=== PATIENT | female | born 2000 | race Asian ===

== ENCOUNTER 2025-04-16 10:33 | Outpatient (AMB) | payer OTHER, SELFPAY ==
[2025-04-16 10:54] VITALS: BP 125/78; PULSE 60; RESP 14; TEMP 36.4; O2SAT 98; BMI 26.8
--- NOTE | 2025-04-16 10:54 | GYNCLNT_ITS ---
Vital Signs 04/16/25 10:54 Height 1.52 m Height Method Stated Weight 61.915 kg Weight Measurement Method Standing Scale BMI 26.8 BP 125/78 Blood Pressure Source Automatic Cuff Blood Pressure Location Left Upper Arm Position Sitting Respiration 14 Pulse 60 Pulse Source Monitor Temp 97.5 F Temp Source Oral Pulse Oximetry (%) 98 Oxygen Delivery Method Room Air Allergies/Home Meds Allergies & Medications Allergies No Known Allergies Allergy (Verified 04/16/25 10:56) Medication Reconciliation fluconazole 150 mg tablet 150 mg PO QDAY 3 days #3 tabs 04/16/25 [Rx] Intake Visit Data Collection New Patient or Established: Established Patient (seen at [facility] within 3 years) Reason for Visit:: PAP SMEAR Seen by Clinical Staff ONLY (RN/MA): No Market Manager Required: No Do You Feel Safe at Home: Yes Authorities Contacted: N/A PCP or OBGYN visit in last 3 months: Yes Hx Now: No Are you currently on any form of Control: Yes Last menstrual period: 04/07/25 Pain Present Currently: No Pain Scale Used: Mcgee-Mathis/Numerical Pain scale:: 0 Smoking Status Smoking Status: Never smoker 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 1. Little interest or pleasure in doing things: not at all 2. Feeling down, depressed, or hopeless: not at all Total score: 0 PHQ-9 3. Trouble falling or staying asleep, or sleeping too much: Not at all 4. Feeling tired or having little energy: Not at all 5. Poor appetite or overeating: Not at all 6. Feeling bad about yourself - or that you are a failure or have let yourself or your family down: Not at all 7. Trouble concentrating on things, such as reading the newspaper or watching television: Not at all 8. Moving or speaking so slowly that other people could have noticed? - Or the opposite - being so fidgety or restless that you have been moving around a lot more than usual: not at all 9. Thoughts that you would be better off or of hurting yourself in some way: Not at all Total score: 0 Source: Developed by Drs. Rad Stephen, Jessica Villeda, Sly Schmid and colleagues, with an educational alex from [employer]. 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 Patient has had Nexplanon for 1 year. She is not happy with the method complaints of problems with prolonged and irregular bleeding. She plans to take a break from control. Denies social habits. Denies surgery. Denies chronic illness. Previous history of vaginitis. 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 Review of Systems Review of Systems Systems Reviewed: All systems reviewed, normal except as documented Exam Narrative Physical exam: Euthyroid. Both breasts soft symmetrical. Nontender. No masses. Nipples erect. Abdomen soft nontender, no masses. Perineum clear no lesions noted. Coy rugae. Minimal whitish thin discharge. Negative whiff. Nulliparous cervix. No inflammation no cervical motion tenderness no masses. Uterus normal size and shape mobile nontender. Adnexa was normal. nexplanon site intact General Limitations: no limitations General Appearance: alert, in no apparent distress, comfortable, cooperative, healthy appearing, well developed and well groomed Head Head exam: atraumatic, normocephalic and normal inspection ENT ENT exam: Present normal exam, normal oropharynx and mucous membranes moist Resp Respiratory exam: Present normal lung sounds bilaterally Card Cardiovascular exam: Present regular rate, normal rhythm and normal heart sounds Abdominal Abdominal exam: Present soft and normal bowel sounds Psych Psychiatric exam: Present normal affect and normal mood Office Procedures [facility] LOC & Office Proc's Nursing/Assessment Patient Status: Established Patient OB Clinic Nursing Assessment: Medication Reconciliation, Update PMH in EMR and Vital Signs OB Clinic Coordination of Care: Complex Care and Chronic Disease 1-5, Consent,records obtained, informed consent, Education Simp Pt/Fam, Lab and Imaging orders, Results/Orders obtained and Staff clarify orders Special Needs: Heart tones Miscellaneous Interventions: Pelvic/Pap Smear Set up Established Patient Charge Established Patient Point Assignment: 155 Established Patient Point Charge: EP Level 4 (120-155) In Clinic Bedside tests/procedures Pap Smear: Yes Assessment & Plan Diagnosis / Problem List (1) Encounter for physical examination, contraception, and Papanicolaou smear: Status: Acute (2) Normal Papanicolaou smear: Status: Acute (3) Vaginitis: Status: Acute Qualifiers: Chronicity: acute Qualified Code(s): N76.0 - Acute vaginitis Plan Pap smear new swab today. Discussed self breast exam. I reviewed comfort measures for vaginitis and preventative measures. Discussed diet and exercise. I ordered Diflucan 150 p.o. daily x 3. Reviewed Nexplanon capsule and discussed removal. 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 patient gave verbal consent Post-op diagnosis procedure note: Same [place] in room during procedure?: No Procedure position: lithotomy Speculum inserted, cervix visualized: Yes (with small speculum) Cervical appearance: normal (No lesions seen . nulliparous. No friability. No erythema seen) Collection method: broom type device Specimen placed in liquid-based cytology medium: Yes (Specimen properly labeled) Complications: No Patient tolerated procedure well: Yes Follow up pending results: phone call Procedure Notes:: Placed in lithotomy position. Speculum inserted in vagina. Nulliparous cervix. No cervical motion tenderness. No lesions. Uterus was normal size and shape mobile and nontender. Adnexa felt normal no masses. Bimanual exam was normal. No masses no pain on palpation. Small amount of whitish discharge. No foul odor. New swab was also collected at that time for vaginitis. Papsmear completed: yes
== END 2025-04-16 11:13 | disposition home or self-care (01) ==
LOC: HODSOBC 10:33
PROVIDERS: Supervising Provider Advanced Practice Midwife; Visit Provider Advanced Practice Midwife
DX: Z01.411 Encounter for gynecological examination (general) (routine) with abnormal findings (principal); N76.0 Acute vaginitis
CPT/HCPCS: 99214; Q0091; G0463